=== PATIENT | male | born 1935 | race Caucasian/White ===

== ENCOUNTER 2017-03-24 19:11 | Inpatient (IN) ==
[2017-03-24] MEDS ORDERED: SODIUM CHLORIDE 0.9% 1,000 ML IV STA ×2 (19:47→20:59)
[2017-03-24] MEDS ORDERED: ONDANSETRON 4 MG/2 ML VIAL IV STA (19:49)
[2017-03-24] MEDS ORDERED: ONDANSETRON 4 MG/2 ML VIAL ONE (20:03)
[2017-03-24 20:25] LABS: Basophils % 0.2 % (0.0-0.8); Eosinophils % 0.1 % (0.00-10.9); Hematocrit 37.5 VOL% (42.0-52.0); Hemoglobin 13.4 GM/DL (14.0-18.0); Immature Granulocytes % 0.4 %; Immature Granulocytes Absolute 0.06 #; Lymphocytes # 0.7 10*3/uL (1.4-4.0); Lymphocytes % 4.1 % (21.2-54.2); Mean Corpuscular HGB Conc 35.7 GM/DL (32-36); Mean Corpuscular Hemoglobin 33 PG (27-34); Mean Platelet Volume 9.6 FL (9.6-12.0); Monocytes # 0.8 10*3/uL (0.11-0.8); Monocytes % 4.7 % (1.7-12.7); Neutrophils # 14.5 10*3/uL (1.4-7.4); Neutrophils % 90.5 % (38.7-73.9); Platelet Count 171 T/CUMM (130-400); Red Blood Count 4.12 MC/CUMM (3.8-5.5); Red Cell Distribution Width 12.7 % (9.3-17.3)
[2017-03-24 20:41] LABS: Troponin I Only < 0.015 NG/ML (0.00-0.045)
[2017-03-24 20:48] LABS: Lactic Acid 1.9 MMOL/L (0.4-2.0)
[2017-03-24 21:00] LABS: Albumin 4.4 G/DL (3.4-5.0); Bilirubin,Total 1.1 MG/DL (0.2-1.0); Calcium 9.1 MG/DL (8.5-10.1); Osmolality,Calculated 285.8 MOS/KG (273-304); Potassium 4.3 MMOL/L (3.5-5.1); Total Protein 7.3 G/DL (6.4-8.3)
[2017-03-24] MEDS ORDERED: MORPHINE 2 MG/1 ML SYRINGE IV PRN (22:03)
[2017-03-24] MEDS ORDERED: ONDANSETRON 4 MG/2 ML VIAL IV PRN (22:03)
[2017-03-24] MEDS: DEXTROSE 5% LACTATED RINGERS 1,000 ML IV SCH (23:48)
[2017-03-25] MEDS ORDERED: hydrALAZINE 20 MG/1 ML VIAL IV PRN (02:03)
[2017-03-25] MEDS ORDERED: NITROGLYCERIN SL 0.4 MG TABLET SL PRN (02:04)
[2017-03-25 05:03] LABS: Basophils % 0.3 % (0.0-0.8); Eosinophils % 0.2 % (0.00-10.9); Hematocrit 33.3 VOL% (42.0-52.0); Hemoglobin 12.1 GM/DL (14.0-18.0); Immature Granulocytes % 0.4 %; Immature Granulocytes Absolute 0.05 #; Lymphocytes # 0.7 10*3/uL (1.4-4.0); Lymphocytes % 5.7 % (21.2-54.2); Mean Corpuscular HGB Conc 36.3 GM/DL (32-36); Mean Corpuscular Hemoglobin 33 PG (27-34); Mean Corpuscular Volume 91.5 FL (87-102); Mean Platelet Volume 9.2 FL (9.6-12.0); Monocytes # 0.8 10*3/uL (0.11-0.8); Neutrophils # 10.4 10*3/uL (1.4-7.4); Neutrophils % 86.4 % (38.7-73.9); Platelet Count 162 T/CUMM (130-400); Red Blood Count 3.64 MC/CUMM (3.8-5.5); Red Cell Distribution Width 12.8 % (9.3-17.3); White Blood Count 12.1 T/CUMM (4-12)
[2017-03-25 05:40] LABS: Albumin 3.3 G/DL (3.4-5.0); Bilirubin,Total 0.8 MG/DL (0.2-1.0); Calcium 7.5 MG/DL (8.5-10.1); Osmolality,Calculated 288.7 MOS/KG (273-304); Potassium 4.3 MMOL/L (3.5-5.1); Total Protein 5.7 G/DL (6.4-8.3)
[2017-03-25] MEDS: metroNIDAZOLE INJ 500 MG in PREMIX 1 EACH IV SCH ×3 (06:07→21:19)
[2017-03-25 06:43] LABS: Apearance,Urine CLEAR (Clear); Bilirubin,Urine Negative (Negative); Blood, Urine Large mg/dL (Negative); Glucose,Urine (UA) >=500 mg/dL (Negative); Ketones,Urine 5 mg/dL (Negative); Nitrite,Urine Negative (Negative); Protein,Urine Negative; RBC,Urine 90 /HPF (0-4); Squamous Epithelial Cell,Urine Occasional /HPF (0-10); Urine Color Yellow (Yellow); Urine Specific Gravity 1.027 (1.001-1.035); Urine Urobilinogen < 2.0 EU/DL (0.2-1.0); WBC,Urine <1 /HPF (0-6)
[2017-03-25] MEDS: METOPROLOL TARTRATE 5 MG/5 ML VIAL IV SCH ×3 (07:26→17:52)
[2017-03-25] MEDS: DEXTROSE 5% LACTATED RINGERS 1,000 ML IV SCH ×3 (07:34→16:09)
[2017-03-25] MEDS ORDERED: cloNIDine 0.2 MG/24 HR PATCH TRANSDERM SCH (09:00)
[2017-03-25] MEDS ORDERED: PANTOPRAZOLE 40 MG TABLET PO SCH (09:00)
[2017-03-25] MEDS: INSULIN LISPRO 100 UNIT/ML SUBCUT SCH ×3 (11:35→21:13)
[2017-03-25] MEDS ORDERED: LIDOCAINE 1%/EPI INJ 20 ML VIAL ONE (12:10)
[2017-03-25] MEDS: SODIUM CHLORIDE 0.9% 1,000 ML IV SCH ×3 (13:00→14:31)
[2017-03-25] MEDS ORDERED: BUPIVACAINE LIPOSOMAL 20 ML/266 MG VIAL ONE (13:36)
[2017-03-25] MEDS ORDERED: PROPOFOL 1,000 MG/100 ML BOTTLE IV ONE (14:18)
[2017-03-25] MEDS ORDERED: ONDANSETRON 4 MG/2 ML VIAL IV PRN (14:49)
[2017-03-25] MEDS ORDERED: ACETAMINOPHEN 325 MG TABLET PO PRN (14:49)
[2017-03-25] MEDS: PROPOFOL 1,000 MG/100 ML BOTTLE IV SCH ×2 (15:15→21:17)
[2017-03-25 15:27] LABS: Hematocrit 30.3 VOL% (42.0-52.0); Hemoglobin 10.6 GM/DL (14.0-18.0)
[2017-03-25 15:46] LABS: ABG PCO2 32.8 MM HG (35-48)
[2017-03-25 15:47] LABS: ABG Base Excess -3.7 MMOL/L (-2.5-2.5); ABG HCO3 21.4 MMOL/L (20-26); ABG Oxygen Saturation 98.8 % (95-100); ABG TCO2 18.1 MMOL/L (23-27)
[2017-03-25] MEDS ORDERED: LACTATED RINGERS 1,000 ML IV SCH (16:00)
[2017-03-25] MEDS ORDERED: HEPARIN/NACL 0.9% 2 UNITS/ML 500 ML IV ONE (16:02)
[2017-03-25] MEDS ORDERED: ETOMIDATE 20 MG/10 ML VIAL IV ONE (16:02)
[2017-03-25] MEDS ORDERED: PHENYLEPHRINE 50 MG/5 ML VIAL ONE (16:02)
[2017-03-25] MEDS ORDERED: LACTATED RINGERS 2,000 ML IV ONE (16:02)
[2017-03-25] MEDS ORDERED: SEVOFLURANE 1 UNIT/15 MINUTE INH ONE (16:02)
[2017-03-25] MEDS ORDERED: ROCURONIUM 100 MG/10 ML VIAL IV ONE (16:02)
[2017-03-25] MEDS ORDERED: SODIUM CHLORIDE 0.9% 2,000 ML IV ONE (16:02)
[2017-03-25] MEDS ORDERED: SKIN HEALING OINT (AQUAPHOR) 50 GM TUBE TOP PRN (16:41)
[2017-03-25] MEDS: HYDROmorphone 2 MG/1 ML VIAL IV PRN (17:52)
[2017-03-25] MEDS: ceFAZolin 2,000 MG in PREMIX 1 EACH IV SCH (20:02)
[2017-03-25 23:30] LABS: Hematocrit 31.3 VOL% (42.0-52.0)
[2017-03-26] MEDS: DEXTROSE 5% LACTATED RINGERS 1,000 ML IV SCH ×2 (02:56→07:23)
[2017-03-26 03:55] LABS: ABG Base Excess -2.1 MMOL/L (-2.5-2.5); ABG HCO3 21.1 MMOL/L (20-26); ABG Oxygen Saturation 96.9 % (95-100); ABG PCO2 31.1 MM HG (35-48); ABG PH 7.449 (7.35-7.45); ABG PO2 110.5 MM HG (80-95); Allen Test Positive; Pt O2 Delivery Device Ventilator
[2017-03-26] MEDS: METOPROLOL TARTRATE 5 MG/5 ML VIAL IV SCH ×5 (04:22→23:58)
[2017-03-26] MEDS: ceFAZolin 2,000 MG in PREMIX 1 EACH IV SCH (04:22)
[2017-03-26] MEDS: PROPOFOL 1,000 MG/100 ML BOTTLE IV SCH ×2 (04:31→15:59)
[2017-03-26 04:36] LABS: Basophils % 0.3 % (0.0-0.8); Hematocrit 30.7 VOL% (42.0-52.0); Hemoglobin 10.8 GM/DL (14.0-18.0); Immature Granulocytes % 0.5 %; Immature Granulocytes Absolute 0.04 #; Lymphocytes # 0.9 10*3/uL (1.4-4.0); Lymphocytes % 11.6 % (21.2-54.2); Mean Corpuscular HGB Conc 35.2 GM/DL (32-36); Mean Corpuscular Hemoglobin 33 PG (27-34); Mean Corpuscular Volume 93.3 FL (87-102); Mean Platelet Volume 9.9 FL (9.6-12.0); Monocytes # 0.8 10*3/uL (0.11-0.8); Neutrophils # 5.9 10*3/uL (1.4-7.4); Neutrophils % 77.6 % (38.7-73.9); Platelet Count 148 T/CUMM (130-400); Red Blood Count 3.29 MC/CUMM (3.8-5.5); Red Cell Distribution Width 13.3 % (9.3-17.3); White Blood Count 7.6 T/CUMM (4-12)
[2017-03-26 04:40] LABS: Alanine Aminotransferase 18 U/L (16-61); Albumin 2.4 G/DL (3.4-5.0); Alkaline Phosphatase 35 U/L (45-117); Aspartate Amino Transferase 25 U/L (0-37); Blood Urea Nitrogen 25 MG/DL (7-18); Calcium 6.7 MG/DL (8.5-10.1); Cholesterol < 50 MG/DL (50-200); Glucose 233 MG/DL (74-106); HDL Cholesterol 29 MG/DL (40-60); Magnesium 0.7 MG/DL (1.8-2.4); Osmolality,Calculated 291.3 MOS/KG (273-304); Potassium 3.6 MMOL/L (3.5-5.1); Risk Ratio 1.72; Sodium 141 MMOL/L (136-145); Total Protein 4.3 G/DL (6.4-8.3); Triglycerides 62 MG/DL (2-150); VLDL CHOLESTEROL 12.4 MG/DL
[2017-03-26] MEDS: metroNIDAZOLE INJ 500 MG in PREMIX 1 EACH IV SCH ×3 (05:00→21:31)
[2017-03-26 05:11] LABS: Band Neutrophils 13 % (0-10); Lymphocytes 16 % (20-55); Segmented Neutrophils 61 % (50-85); Total Cells Counted 100
[2017-03-26 05:12] LABS: Giant Platelets Few; Hypochromasia 1+; Platelet Estimate Normal
[2017-03-26 06:35] LABS: ABG HCO3 19.6 MMOL/L (20-26); ABG Oxygen Saturation 96.8 % (95-100); ABG PCO2 24.4 MM HG (35-48); ABG PH 7.522 (7.35-7.45); ABG PO2 101.2 MM HG (80-95); ABG TCO2 20.3 MMOL/L (23-27)
[2017-03-26] MEDS ORDERED: MAGNESIUM SULF RIDER 2 GM in PREMIX 1 EACH IV ONE (07:58)
[2017-03-26] MEDS ORDERED: DEXT 5% NACL 0.45% KCL 10 MEQ 10 MEQ/1,000 ML BAG IV SCH (08:00)
[2017-03-26] MEDS: ENOXAPARIN 30 MG/0.3 ML SYRINGE SUBCUT SCH (08:19)
[2017-03-26] MEDS: PANTOPRAZOLE 40 MG VIAL IV SCH (08:19)
[2017-03-26] MEDS: INSULIN LISPRO 100 UNIT/ML SUBCUT SCH ×4 (08:19→20:30)
[2017-03-26] MEDS: HYDROmorphone 2 MG/1 ML VIAL IV PRN ×2 (08:20→16:01)
[2017-03-26 08:44] LABS: Hematocrit 31.8 VOL% (42.0-52.0)
[2017-03-26 09:18] LABS: ABG Base Excess -3.6 MMOL/L (-2.5-2.5); ABG HCO3 21.4 MMOL/L (20-26); ABG Oxygen Saturation 95.8 % (95-100); ABG PCO2 39.3 MM HG (35-48); ABG PO2 86.3 MM HG (80-95); ABG TCO2 19.6 MMOL/L (23-27)
[2017-03-26] MEDS: POTASSIUM CHLORIDE IV SCH ×2 (09:34→21:08)
[2017-03-26] MEDS: MAGNESIUM SULF IV SCH ×2 (09:34→21:08)
[2017-03-26] MEDS: [UNRECOGNIZED DRUG - OTHER] IV SCH ×2 (09:34→21:08)
[2017-03-27] MEDS: POTASSIUM CHLORIDE IV SCH ×2 (00:32→12:07)
[2017-03-27] MEDS: MAGNESIUM SULF IV SCH ×2 (00:32→12:07)
[2017-03-27] MEDS: [UNRECOGNIZED DRUG - OTHER] IV SCH ×2 (00:32→12:07)
[2017-03-27 04:11] LABS: ABG Base Excess -2.6 MMOL/L (-2.5-2.5); ABG HCO3 22.2 MMOL/L (20-26); ABG Oxygen Saturation 93.7 % (95-100); ABG PCO2 34.6 MM HG (35-48); ABG PH 7.403 (7.35-7.45); ABG PO2 69.2 MM HG (80-95); ABG TCO2 19.8 MMOL/L (23-27); Allen Test Positive
[2017-03-27] MEDS: METOPROLOL TARTRATE 5 MG/5 ML VIAL IV SCH ×4 (05:06→23:46)
[2017-03-27] MEDS: metroNIDAZOLE INJ 500 MG in PREMIX 1 EACH IV SCH ×3 (05:06→21:42)
[2017-03-27 06:49] LABS: Basophils % 0.2 % (0.0-0.8); Eosinophils % 0.1 % (0.00-10.9); Hematocrit 28.2 VOL% (42.0-52.0); Hemoglobin 9.6 GM/DL (14.0-18.0); Immature Granulocytes Absolute 0.09 #; Lymphocytes # 1.1 10*3/uL (1.4-4.0); Lymphocytes % 11.7 % (21.2-54.2); Mean Corpuscular Hemoglobin 32 PG (27-34); Mean Corpuscular Volume 94.9 FL (87-102); Monocytes # 0.8 10*3/uL (0.11-0.8); Monocytes % 8.5 % (1.7-12.7); Neutrophils % 78.5 % (38.7-73.9); Platelet Count 121 T/CUMM (130-400); Red Blood Count 2.97 MC/CUMM (3.8-5.5); Red Cell Distribution Width 13.4 % (9.3-17.3)
[2017-03-27 07:23] LABS: Band Neutrophils 24 % (0-10); Lymphocytes 9 % (20-55); Myelocytes 1 %; Segmented Neutrophils 58 % (50-85); Total Cells Counted 100
[2017-03-27 07:24] LABS: Anisocytosis 1+; Poikilocytosis 1+; Polychromasia Slight
[2017-03-27 07:26] LABS: Calcium 6.5 MG/DL (8.5-10.1); Osmolality,Calculated 284.5 MOS/KG (273-304); Potassium 3.6 MMOL/L (3.5-5.1)
[2017-03-27] MEDS: INSULIN LISPRO 100 UNIT/ML SUBCUT SCH ×4 (08:05→21:43)
[2017-03-27] MEDS: PANTOPRAZOLE 40 MG VIAL IV SCH (09:08)
[2017-03-27] MEDS: ENOXAPARIN 30 MG/0.3 ML SYRINGE SUBCUT SCH (09:10)
[2017-03-28 03:33] LABS: ABG Base Excess -2.4 MMOL/L (-2.5-2.5); ABG HCO3 22.4 MMOL/L (20-26); ABG Oxygen Saturation 93.8 % (95-100); ABG PO2 67.5 MM HG (80-95); ABG TCO2 19.2 MMOL/L (23-27); Allen Test Positive
[2017-03-28] MEDS: METOPROLOL TARTRATE 5 MG/5 ML VIAL IV SCH ×3 (06:27→17:48)
[2017-03-28] MEDS: metroNIDAZOLE INJ 500 MG in PREMIX 1 EACH IV SCH ×3 (06:27→23:16)
[2017-03-28 07:22] LABS: Basophils % 0.3 % (0.0-0.8); Eosinophils # 0.3 10*3/uL (0.0-0.87); Eosinophils % 3.2 % (0.00-10.9); Hematocrit 25.6 VOL% (42.0-52.0); Hemoglobin 8.7 GM/DL (14.0-18.0); Immature Granulocytes % 0.4 %; Immature Granulocytes Absolute 0.03 #; Lymphocytes # 1.4 10*3/uL (1.4-4.0); Lymphocytes % 17.9 % (21.2-54.2); Mean Corpuscular Hemoglobin 32 PG (27-34); Mean Corpuscular Volume 94.8 FL (87-102); Mean Platelet Volume 10.5 FL (9.6-12.0); Monocytes # 0.5 10*3/uL (0.11-0.8); Monocytes % 6.6 % (1.7-12.7); Neutrophils # 5.5 10*3/uL (1.4-7.4); Neutrophils % 71.6 % (38.7-73.9); Platelet Count 133 T/CUMM (130-400); Red Cell Distribution Width 13.2 % (9.3-17.3); White Blood Count 7.7 T/CUMM (4-12)
[2017-03-28] MEDS: INSULIN LISPRO 100 UNIT/ML SUBCUT SCH ×4 (08:24→21:35)
[2017-03-28 08:28] LABS: Calcium 7.1 MG/DL (8.5-10.1); Free T4 (Free Thyroxine) 1.38 NG/DL (0.76-1.46); Magnesium 2.2 MG/DL (1.8-2.4); Osmolality,Calculated 283.4 MOS/KG (273-304); Potassium 3.9 MMOL/L (3.5-5.1); Thyroid Stimulating Hormone 6.01 uIU/ml (0.358-3.74)
[2017-03-28] MEDS: PANTOPRAZOLE 40 MG VIAL IV SCH (09:01)
[2017-03-28] MEDS: ENOXAPARIN 30 MG/0.3 ML SYRINGE SUBCUT SCH (09:03)
[2017-03-28] MEDS: [UNRECOGNIZED DRUG - OTHER] IV SCH ×2 (23:19→23:20)
[2017-03-28] MEDS: POTASSIUM CHLORIDE IV SCH ×2 (23:19→23:20)
[2017-03-28] MEDS: MAGNESIUM SULF IV SCH ×2 (23:19→23:20)
[2017-03-29] MEDS: METOPROLOL TARTRATE 5 MG/5 ML VIAL IV SCH ×4 (00:50→17:55)
[2017-03-29 05:04] LABS: Basophils % 0.4 % (0.0-0.8); Eosinophils # 0.3 10*3/uL (0.0-0.87); Eosinophils % 3.4 % (0.00-10.9); Hematocrit 27.5 VOL% (42.0-52.0); Hemoglobin 9.4 GM/DL (14.0-18.0); Immature Granulocytes % 0.6 %; Immature Granulocytes Absolute 0.06 #; Lymphocytes # 1.4 10*3/uL (1.4-4.0); Lymphocytes % 14.8 % (21.2-54.2); Mean Corpuscular HGB Conc 34.2 GM/DL (32-36); Mean Corpuscular Hemoglobin 32 PG (27-34); Mean Corpuscular Volume 93.9 FL (87-102); Monocytes # 0.7 10*3/uL (0.11-0.8); Monocytes % 7.1 % (1.7-12.7); Neutrophils # 6.9 10*3/uL (1.4-7.4); Neutrophils % 73.7 % (38.7-73.9); Platelet Count 171 T/CUMM (130-400); Red Blood Count 2.93 MC/CUMM (3.8-5.5); Red Cell Distribution Width 12.9 % (9.3-17.3); White Blood Count 9.3 T/CUMM (4-12)
[2017-03-29 05:15] LABS: Allen Test Positive; Pt O2 Delivery Device Room Air
[2017-03-29 05:16] LABS: ABG Base Excess -3.4 MMOL/L (-2.5-2.5); ABG HCO3 21.5 MMOL/L (20-26); ABG Oxygen Saturation 92.3 % (95-100); ABG PCO2 32.6 MM HG (35-48); ABG PH 7.408 (7.35-7.45); ABG PO2 72.4 MM HG (80-95)
[2017-03-29 05:22] LABS: Calcium 7.4 MG/DL (8.5-10.1); Osmolality,Calculated 284.3 MOS/KG (273-304); Potassium 3.6 MMOL/L (3.5-5.1)
[2017-03-29] MEDS: metroNIDAZOLE INJ 500 MG in PREMIX 1 EACH IV SCH (06:09)
[2017-03-29] MEDS: MAGNESIUM SULF IV SCH ×2 (06:15→09:29)
[2017-03-29] MEDS: POTASSIUM CHLORIDE IV SCH ×2 (06:15→09:29)
[2017-03-29] MEDS: [UNRECOGNIZED DRUG - OTHER] IV SCH ×2 (06:15→09:29)
[2017-03-29] MEDS: ENOXAPARIN 30 MG/0.3 ML SYRINGE SUBCUT SCH (09:28)
[2017-03-29] MEDS: INSULIN LISPRO 100 UNIT/ML SUBCUT SCH ×4 (09:29→20:45)
[2017-03-29] MEDS: PANTOPRAZOLE 40 MG VIAL IV SCH (09:29)
[2017-03-29] MEDS: ALFUZOSIN 10 MG TABLET PO SCH (17:55)
[2017-03-29] MEDS: glyBURIDE/METFORMIN 2.5-500 MG TABLET PO SCH (20:38)
[2017-03-29] MEDS: SIMVASTATIN 40 MG TABLET PO SCH (20:39)
[2017-03-29] MEDS: AMITRIPTYLINE 25 MG TABLET PO SCH (20:39)
[2017-03-30] MEDS: METOPROLOL TARTRATE 5 MG/5 ML VIAL IV SCH ×5 (00:30→23:43)
[2017-03-30 04:42] LABS: Basophils % 0.5 % (0.0-0.8); Eosinophils # 0.2 10*3/uL (0.0-0.87); Eosinophils % 3.5 % (0.00-10.9); Hematocrit 25.1 VOL% (42.0-52.0); Hemoglobin 8.6 GM/DL (14.0-18.0); Immature Granulocytes % 0.7 %; Immature Granulocytes Absolute 0.04 #; Mean Corpuscular HGB Conc 34.3 GM/DL (32-36); Mean Corpuscular Hemoglobin 32 PG (27-34); Mean Corpuscular Volume 93.3 FL (87-102); Mean Platelet Volume 9.9 FL (9.6-12.0); Monocytes # 0.5 10*3/uL (0.11-0.8); Monocytes % 8.4 % (1.7-12.7); Neutrophils # 4.2 10*3/uL (1.4-7.4); Neutrophils % 69.9 % (38.7-73.9); Platelet Count 178 T/CUMM (130-400); Red Blood Count 2.69 MC/CUMM (3.8-5.5); Red Cell Distribution Width 12.9 % (9.3-17.3); White Blood Count 6.1 T/CUMM (4-12)
[2017-03-30 05:27] LABS: Calcium 7.4 MG/DL (8.5-10.1); Osmolality,Calculated 284.1 MOS/KG (273-304); Potassium 3.5 MMOL/L (3.5-5.1)
[2017-03-30] MEDS: ASPIRIN EC 325 MG TABLET PO SCH (09:06)
[2017-03-30] MEDS: MULTIVITAMIN (OCUVITE) TABLET PO SCH (09:07)
[2017-03-30] MEDS: ENOXAPARIN 40 MG/0.4 ML SYRINGE SUBCUT SCH (09:07)
[2017-03-30] MEDS: LOSARTAN 25 MG TABLET PO SCH (09:07)
[2017-03-30] MEDS: PANTOPRAZOLE 40 MG VIAL IV SCH (09:08)
[2017-03-30] MEDS: INSULIN LISPRO 100 UNIT/ML SUBCUT SCH ×4 (09:10→21:14)
[2017-03-30] MEDS: ALFUZOSIN 10 MG TABLET PO SCH (17:09)
[2017-03-30] MEDS: glyBURIDE/METFORMIN 2.5-500 MG TABLET PO SCH (21:15)
[2017-03-30] MEDS: AMITRIPTYLINE 25 MG TABLET PO SCH (21:15)
[2017-03-30] MEDS: SIMVASTATIN 40 MG TABLET PO SCH (21:16)
[2017-03-31] MEDS: METOPROLOL TARTRATE 5 MG/5 ML VIAL IV SCH (05:31)
[2017-03-31] MEDS: LOSARTAN 25 MG TABLET PO SCH (10:27)
[2017-03-31] MEDS: MULTIVITAMIN (OCUVITE) TABLET PO SCH (10:27)
[2017-03-31] MEDS: ASPIRIN EC 325 MG TABLET PO SCH (10:27)
[2017-03-31] MEDS: ENOXAPARIN 40 MG/0.4 ML SYRINGE SUBCUT SCH (10:28)
[2017-03-31] MEDS: INSULIN LISPRO 100 UNIT/ML SUBCUT SCH (10:46)
[2017-03-31] MEDS: PANTOPRAZOLE 40 MG VIAL IV SCH (10:46)
[2017-03-31 14:42] VITALS: BP 148/73
== END 2017-03-31 10:55 | disposition home or self-care (01) | DRG 330 ==
LOC: N.ED 19:11 → N.EDINP 22:03 → N.ICU 23:38 → N.3E 03-26 20:56
PROVIDERS: ADMIT Specialist; ATTEND Specialist

== ENCOUNTER 2017-10-09 17:22 | Inpatient (IN) ==
[2017-10-09] MEDS ORDERED: SODIUM CHLORIDE 0.9% 1,000 ML IV STA (17:54)
[2017-10-09] MEDS ORDERED: ONDANSETRON 4 MG/2 ML VIAL IV STA (17:54)
[2017-10-09 18:16] LABS: Basophils % 0.3 % (0.0-0.8); Eosinophils % 0.1 % (0.00-10.9); Hematocrit 38.9 VOL% (42.0-52.0); Hemoglobin 13.7 GM/DL (14.0-18.0); Immature Granulocytes % 0.3 %; Immature Granulocytes Absolute 0.04 #; Lymphocytes # 0.6 10*3/uL (1.4-4.0); Lymphocytes % 4.9 % (21.2-54.2); Mean Corpuscular HGB Conc 35.2 GM/DL (32-36); Mean Corpuscular Hemoglobin 33 PG (27-34); Mean Corpuscular Volume 92.4 FL (87-102); Mean Platelet Volume 9.7 FL (9.6-12.0); Monocytes # 0.9 10*3/uL (0.11-0.8); Neutrophils % 86.4 % (38.7-73.9); Platelet Count 208 T/CUMM (130-400); Red Blood Count 4.21 MC/CUMM (3.8-5.5); Red Cell Distribution Width 12.9 % (9.3-17.3); White Blood Count 11.5 T/CUMM (4-12)
[2017-10-09 18:53] LABS: Albumin 4.7 G/DL (3.4-5.0); Bilirubin,Total 1.1 MG/DL (0.2-1.0); Calcium 9.4 MG/DL (8.5-10.1); Osmolality,Calculated 281.5 MOS/KG (273-304); Potassium 5.9 MMOL/L (3.5-5.1); Total Protein 7.8 G/DL (6.4-8.3)
[2017-10-09 19:01] LABS: Band Neutrophils 7 % (0-10); Lymphocytes 14 % (20-55); Platelet Estimate Normal; Segmented Neutrophils 72 % (50-85); Total Cells Counted 100
[2017-10-09] MEDS ORDERED: ACETAMINOPHEN 325 MG TABLET PO PRN (19:37)
[2017-10-09] MEDS ORDERED: PROMETHAZINE 25 MG/1 ML VIAL IM PRN (19:37)
[2017-10-09] MEDS ORDERED: ONDANSETRON 4 MG/2 ML VIAL IV PRN (19:37)
[2017-10-09] MEDS ORDERED: MORPHINE 4 MG/1 ML VIAL IV PRN (19:37)
[2017-10-09] MEDS: DEXTROSE 5% NACL 0.45% 1,000 ML IV SCH (20:49)
[2017-10-09] MEDS ORDERED: SODIUM CHLORIDE 0.9% 1,000 ML IV SCH (22:00)
[2017-10-09] MEDS: DOCUSATE SODIUM 100 MG CAPSULE PO SCH (22:24)
[2017-10-09] MEDS: SODIUM CHLORIDE 0.9% 1,000 ML IV SCH (22:27)
[2017-10-10] MEDS: SODIUM CHLORIDE 0.9% 1,000 ML IV SCH (06:05)
[2017-10-10] MEDS: DEXTROSE 5% NACL 0.45% 1,000 ML IV SCH (06:05)
[2017-10-10 06:13] LABS: Basophils % 0.4 % (0.0-0.8); Eosinophils % 0.7 % (0.00-10.9); Hematocrit 30.5 VOL% (42.0-52.0); Immature Granulocytes % 0.4 %; Immature Granulocytes Absolute 0.02 #; Lymphocytes # 0.7 10*3/uL (1.4-4.0); Lymphocytes % 15.4 % (21.2-54.2); Mean Corpuscular HGB Conc 35.7 GM/DL (32-36); Mean Corpuscular Hemoglobin 32 PG (27-34); Mean Corpuscular Volume 89.7 FL (87-102); Mean Platelet Volume 10.1 FL (9.6-12.0); Monocytes # 0.7 10*3/uL (0.11-0.8); Monocytes % 15.4 % (1.7-12.7); NRBC # 0.05 10*3/uL; Neutrophils % 67.7 % (38.7-73.9); Platelet Count 176 T/CUMM (130-400); Risk Ratio 2.19; VLDL CHOLESTEROL 25.6 MG/DL
[2017-10-10 06:15] LABS: White Blood Count 4.5 T/CUMM (4-12)
[2017-10-10 06:16] LABS: Hemoglobin 10.9 GM/DL (14.0-18.0)
[2017-10-10 06:23] LABS: Band Neutrophils 21 % (0-10); Giant Platelets Few; Hypochromasia 1+; Lymphocytes 15 % (20-55); Microcytosis Slight; Ovalocytes Slight; Platelet Estimate Adequate; Segmented Neutrophils 53 % (50-85); Total Cells Counted 100
[2017-10-10 07:26] LABS: Apearance,Urine Slightly Hazy (Clear); Bilirubin,Urine Negative (Negative); Blood, Urine Negative (Negative); Glucose,Urine (UA) 150 mg/dL (Negative); Hyaline Casts,Urine 1 /LPF (0-3); Ketones,Urine 5 mg/dL (Negative); Mucus,Urine Occasional /LPF (Occasional); Nitrite,Urine Negative (Negative); Protein,Urine Negative; RBC,Urine 1 /HPF (0-4); Squamous Epithelial Cell,Urine Occasional /HPF (0-10); Urine Color Yellow (Yellow); Urine Specific Gravity 1.017 (1.001-1.035); Urine Urobilinogen < 2.0 EU/DL (0.2-1.0); WBC,Urine 1 /HPF (0-6)
[2017-10-10 07:30] LABS: Albumin 3.5 G/DL (3.4-5.0); Bilirubin,Total 0.7 MG/DL (0.2-1.0); Calcium 8.1 MG/DL (8.5-10.1); Potassium 4.5 MMOL/L (3.5-5.1); Total Protein 6.2 G/DL (6.4-8.3)
[2017-10-10] MEDS: INSULIN LISPRO 100 UNIT/ML SUBCUT SCH ×4 (07:56→21:13)
[2017-10-10] MEDS: DOCUSATE SODIUM 100 MG CAPSULE PO SCH ×2 (09:36→21:13)
[2017-10-10] MEDS: MAGNESIUM SULF INJ 2 GM in SODIUM CHLORIDE 0.9% 1,000 ML IV SCH ×2 (09:36→17:36)
[2017-10-10] MEDS: PANTOPRAZOLE 40 MG VIAL IV SCH (09:37)
[2017-10-11] MEDS: MAGNESIUM SULF INJ 2 GM in SODIUM CHLORIDE 0.9% 1,000 ML IV SCH ×2 (01:36→09:53)
[2017-10-11 05:45] LABS: Basophils % 0.6 % (0.0-0.8); Eosinophils # 0.2 10*3/uL (0.0-0.87); Eosinophils % 3.3 % (0.00-10.9); Hematocrit 32.6 VOL% (42.0-52.0); Hemoglobin 11.4 GM/DL (14.0-18.0); Immature Granulocytes % 0.3 %; Immature Granulocytes Absolute 0.02 #; Lymphocytes # 2.1 10*3/uL (1.4-4.0); Lymphocytes % 33.1 % (21.2-54.2); Mean Corpuscular Hemoglobin 32 PG (27-34); Mean Corpuscular Volume 91.8 FL (87-102); Mean Platelet Volume 9.7 FL (9.6-12.0); Monocytes # 0.7 10*3/uL (0.11-0.8); Monocytes % 10.3 % (1.7-12.7); Neutrophils # 3.3 10*3/uL (1.4-7.4); Neutrophils % 52.4 % (38.7-73.9); Platelet Count 192 T/CUMM (130-400); Red Blood Count 3.55 MC/CUMM (3.8-5.5); Red Cell Distribution Width 13.1 % (9.3-17.3); White Blood Count 6.3 T/CUMM (4-12)
[2017-10-11 06:37] LABS: Calcium 7.9 MG/DL (8.5-10.1); Osmolality,Calculated 289.3 MOS/KG (273-304); Potassium 4.3 MMOL/L (3.5-5.1)
[2017-10-11] MEDS: INSULIN LISPRO 100 UNIT/ML SUBCUT SCH ×4 (08:42→20:48)
[2017-10-11] MEDS: DOCUSATE SODIUM 100 MG CAPSULE PO SCH ×2 (09:54→20:46)
[2017-10-11] MEDS: PANTOPRAZOLE 40 MG VIAL IV SCH (09:56)
[2017-10-11] MEDS: SODIUM CHLORIDE 0.45% 1,000 ML IV SCH (14:19)
[2017-10-12 06:00] LABS: Basophils % 0.6 % (0.0-0.8); Eosinophils # 0.2 10*3/uL (0.0-0.87); Eosinophils % 4.6 % (0.00-10.9); Hematocrit 30.8 VOL% (42.0-52.0); Hemoglobin 10.8 GM/DL (14.0-18.0); Immature Granulocytes % 0.2 %; Immature Granulocytes Absolute 0.01 #; Lymphocytes # 1.6 10*3/uL (1.4-4.0); Mean Corpuscular HGB Conc 35.1 GM/DL (32-36); Mean Corpuscular Hemoglobin 32 PG (27-34); Mean Corpuscular Volume 90.1 FL (87-102); Mean Platelet Volume 9.5 FL (9.6-12.0); Monocytes # 0.7 10*3/uL (0.11-0.8); Neutrophils # 2.5 10*3/uL (1.4-7.4); Neutrophils % 49.6 % (38.7-73.9); Platelet Count 183 T/CUMM (130-400); Red Blood Count 3.42 MC/CUMM (3.8-5.5); Red Cell Distribution Width 12.8 % (9.3-17.3)
[2017-10-12 06:30] LABS: Calcium 8.1 MG/DL (8.5-10.1); Osmolality,Calculated 284.3 MOS/KG (273-304); Potassium 3.9 MMOL/L (3.5-5.1)
[2017-10-12] MEDS: INSULIN LISPRO 100 UNIT/ML SUBCUT SCH ×4 (08:28→20:47)
[2017-10-12] MEDS: DOCUSATE SODIUM 100 MG CAPSULE PO SCH ×2 (09:16→20:10)
[2017-10-12] MEDS: PANTOPRAZOLE 40 MG VIAL IV SCH (09:16)
[2017-10-12] MEDS: SODIUM CHLORIDE 0.45% 1,000 ML IV SCH ×3 (12:09→20:11)
[2017-10-13 07:32] LABS: Calcium 8.4 MG/DL (8.5-10.1); Osmolality,Calculated 282.5 MOS/KG (273-304); Potassium 3.8 MMOL/L (3.5-5.1)
[2017-10-13 07:47] VITALS: BP 158/79
[2017-10-13] MEDS: PANTOPRAZOLE 40 MG VIAL IV SCH (10:14)
[2017-10-13] MEDS: SODIUM CHLORIDE 0.45% 1,000 ML IV SCH (10:15)
[2017-10-13] MEDS: INSULIN LISPRO 100 UNIT/ML SUBCUT SCH ×2 (10:15→13:57)
[2017-10-13] MEDS: DOCUSATE SODIUM 100 MG CAPSULE PO SCH (10:15)
[2017-10-13] MEDS ORDERED: NITROGLYCERIN SL 0.4 MG TABLET SL PRN (10:31)
[2017-10-13] MEDS ORDERED: IRBESARTAN 150 MG TABLET PO SCH (10:45)
[2017-10-13] MEDS ORDERED: hydroCHLOROthiazide 12.5 MG CAPSULE PO SCH (11:00)
[2017-10-13] MEDS ORDERED: amLODIPine 5 MG TABLET PO SCH (11:00)
[2017-10-13] MEDS ORDERED: ASPIRIN EC 325 MG TABLET PO SCH (11:00)
[2017-10-13] MEDS ORDERED: glyBURIDE/METFORMIN 5-500 MG TABLET PO SCH (17:00)
[2017-10-13] MEDS ORDERED: ALFUZOSIN 10 MG TABLET PO SCH (18:00)
[2017-10-13] MEDS ORDERED: SIMVASTATIN 40 MG TABLET PO SCH (21:00)
[2017-10-13] MEDS ORDERED: FERROUS SULFATE 325 MG TABLET PO SCH (21:00)
[2017-10-13] MEDS ORDERED: AMITRIPTYLINE 50 MG TABLET PO SCH (21:00)
[2017-10-14] MEDS ORDERED: MAGNESIUM OXIDE 400 MG TABLET PO SCH (09:00)
[2017-10-14] MEDS ORDERED: MULTIVITAMIN (OCUVITE) TABLET PO SCH (09:00)
== END 2017-10-13 12:00 | disposition home or self-care (01) | DRG 390 ==
LOC: N.ED 17:22 → N.EDINP 19:37 → N.2E 20:17
PROVIDERS: ADMIT Family Medicine; ATTEND Family Medicine

== ENCOUNTER 2017-12-01 17:37 | Inpatient (IN) ==
[2017-12-01 19:18] LABS: Basophils % 0.4 % (0.0-0.8); Eosinophils % 0.3 % (0.00-10.9); Hematocrit 33.7 VOL% (42.0-52.0); Hemoglobin 12.1 GM/DL (14.0-18.0); Immature Granulocytes % 0.4 %; Immature Granulocytes Absolute 0.05 #; Lymphocytes # 0.5 10*3/uL (1.4-4.0); Lymphocytes % 4.6 % (21.2-54.2); Mean Corpuscular HGB Conc 35.9 GM/DL (32-36); Mean Corpuscular Hemoglobin 33 PG (27-34); Mean Corpuscular Volume 91.6 FL (87-102); Mean Platelet Volume 9.6 FL (9.6-12.0); Monocytes # 1.2 10*3/uL (0.11-0.8); Monocytes % 10.2 % (1.7-12.7); Neutrophils # 9.5 10*3/uL (1.4-7.4); Neutrophils % 84.1 % (38.7-73.9); Platelet Count 211 T/CUMM (130-400); Red Blood Count 3.68 MC/CUMM (3.8-5.5); Red Cell Distribution Width 12.9 % (9.3-17.3); White Blood Count 11.3 T/CUMM (4-12)
[2017-12-01 19:54] LABS: Alanine Aminotransferase 25 U/L (16-61); Albumin 4.4 G/DL (3.4-5.0); Alkaline Phosphatase 63 U/L (45-117); Aspartate Amino Transferase 18 U/L (0-37); Blood Urea Nitrogen 37 MG/DL (7-18); Calcium 8.8 MG/DL (8.5-10.1); Glucose 225 MG/DL (74-106); Osmolality,Calculated 288.8 MOS/KG (273-304); Potassium 4.7 MMOL/L (3.5-5.1); Sodium 137 MMOL/L (136-145); Total Protein 7.7 G/DL (6.4-8.3)
[2017-12-01 19:55] LABS: Lactic Acid 3.5 MMOL/L (0.4-2.0)
[2017-12-01 20:50] LABS: Hypochromasia Slight; Macrocytosis Slight; Platelet Estimate Adequate
[2017-12-02 02:17] LABS: Apearance,Urine Slightly Hazy (Clear); Bacteria,Urine Occasional /HPF (Few); Bilirubin,Urine Small mg/dL (Negative); Blood, Urine Negative (Negative); Glucose,Urine (UA) Negative (Negative); Hyaline Casts,Urine 10 /LPF (0-3); Ketones,Urine 5 mg/dL (Negative); Mucus,Urine Occasional /LPF (Occasional); Nitrite,Urine Negative (Negative); Protein,Urine 30 MG/DL; RBC,Urine 1 /HPF (0-4); Squamous Epithelial Cell,Urine Occasional /HPF (0-10); Urine Color Yellow (Yellow); Urine Specific Gravity 1.017 (1.001-1.035); WBC,Urine 1 /HPF (0-6)
[2017-12-02 07:46] LABS: Basophils % 0.3 % (0.0-0.8); Eosinophils # 0.1 10*3/uL (0.0-0.87); Eosinophils % 0.9 % (0.00-10.9); Hematocrit 27.9 VOL% (42.0-52.0); Immature Granulocytes % 0.5 %; Immature Granulocytes Absolute 0.03 #; Lymphocytes # 1.1 10*3/uL (1.4-4.0); Mean Corpuscular HGB Conc 35.5 GM/DL (32-36); Mean Corpuscular Hemoglobin 34 PG (27-34); Mean Corpuscular Volume 94.6 FL (87-102); Mean Platelet Volume 10.1 FL (9.6-12.0); Monocytes # 0.6 10*3/uL (0.11-0.8); Monocytes % 10.8 % (1.7-12.7); Neutrophils % 69.5 % (38.7-73.9); Red Blood Count 2.95 MC/CUMM (3.8-5.5); Red Cell Distribution Width 13.2 % (9.3-17.3)
[2017-12-02 07:49] LABS: Hemoglobin 9.9 GM/DL (14.0-18.0); White Blood Count 5.8 T/CUMM (4-12)
[2017-12-02 07:50] LABS: Platelet Count 150 T/CUMM (130-400)
[2017-12-02 07:59] LABS: Band Neutrophils 14 % (0-10); Hypochromasia 1+; Lymphocytes 23 % (20-55); Microcytosis Slight; Platelet Estimate Normal; Segmented Neutrophils 52 % (50-85); Total Cells Counted 100
[2017-12-02 08:00] LABS: Albumin 2.9 G/DL (3.4-5.0); Bilirubin,Total 0.6 MG/DL (0.2-1.0); Calcium 7.6 MG/DL (8.5-10.1); Osmolality,Calculated 292.7 MOS/KG (273-304); Potassium 4.4 MMOL/L (3.5-5.1)
[2017-12-03 05:48] LABS: Basophils % 0.4 % (0.0-0.8); Eosinophils # 0.2 10*3/uL (0.0-0.87); Eosinophils % 3.5 % (0.00-10.9); Hematocrit 25.8 VOL% (42.0-52.0); Hemoglobin 8.9 GM/DL (14.0-18.0); Immature Granulocytes % 0.2 %; Immature Granulocytes Absolute 0.01 #; Lymphocytes # 1.2 10*3/uL (1.4-4.0); Lymphocytes % 22.7 % (21.2-54.2); Mean Corpuscular HGB Conc 34.5 GM/DL (32-36); Mean Corpuscular Hemoglobin 33 PG (27-34); Mean Corpuscular Volume 94.9 FL (87-102); Mean Platelet Volume 9.7 FL (9.6-12.0); Monocytes # 0.7 10*3/uL (0.11-0.8); Neutrophils # 3.1 10*3/uL (1.4-7.4); Neutrophils % 59.2 % (38.7-73.9); Platelet Count 153 T/CUMM (130-400); Red Blood Count 2.72 MC/CUMM (3.8-5.5); White Blood Count 5.2 T/CUMM (4-12)
[2017-12-03 06:31] LABS: Bilirubin,Total 0.8 MG/DL (0.2-1.0); Calcium 7.7 MG/DL (8.5-10.1); Osmolality,Calculated 290.3 MOS/KG (273-304); Potassium 3.8 MMOL/L (3.5-5.1); Total Protein 5.6 G/DL (6.4-8.3)
[2017-12-03 11:27] VITALS: BP 128/45
== END 2017-12-03 13:53 | disposition home or self-care (01) | DRG 390 ==
LOC: N.ED 17:37 → N.EDINP 20:09 → N.3E 22:35
PROVIDERS: ADMIT Family Medicine; ATTEND Family Medicine